=== PATIENT | female | born 1995 | race Caucasian/White ===

== ENCOUNTER 2016-05-14 13:10 | Emergency (ER) | payer OTHER ==
[~2016-05-14] VITALS: Ht 157.5 cm; Wt 62.5 kg
[2016-05-14 13:28] VITALS: Ht 157.5 cm; Wt 62.5 kg
[2016-05-14] MEDS ORDERED: ACETAMINOPHEN 500 MG TAB PO STA (13:58)
[2016-05-14] MEDS ORDERED: IBUPROFEN 800 MG TAB PO ONE (14:00)
[2016-05-14] MEDS ORDERED: ONDANSETRON (ODT) 4 MG TAB ODT STA (14:03)
[2016-05-14] MEDS ORDERED: LIDOCAINE/MYLANTA 40 ML BTL PO ONE (14:30)
[2016-05-14] MEDS ORDERED: BELLADONNA/PHENOBARBITAL 5ML CUP PO ONE ×2 (14:30)
[2016-05-14 16:51] LABS: URINE BLOOD (Dip) POC 2+ (NEGATIVE)
[2016-05-14 16:56] VITALS: BP 106/61; PULSE 103; RESP 16; TEMP 98.9
[2016-05-14] MEDS ORDERED: IBUP800T25 PO (16:57)
[2016-05-14] MEDS ORDERED: OSLT75C PO (16:57)
[2016-05-14] MEDS ORDERED: LOPE2CAP PO (16:57)
[2016-05-14] MEDS ORDERED: ONDA4TAB14 PO (16:57)
[2016-05-14] MEDS ORDERED: ACET-141 PO (16:57)
[2016-05-14] MEDS ORDERED: KETOROLAC 30 MG INJ IM STA (16:58)
[2016-05-14] MEDS ORDERED: HYDROCODONE/APAP (5/325) TAB PO ONE (17:00)
--- NOTE | 2016-05-14 17:36 | ERD ---
ER Documentation Chief Complaint Date/Time DATE: 05/14/16 TIME: 17:33 Chief Complaint STEVEN N/V/D BODYACHES AP HPI Patient complains of diarrhea, nonbloody vomiting for the past 2 days also headache bone hurts arthralgia myalgia for 2 days. Fever for 1 day. No UTI symptoms. She says she has had influenza shot. No past medical history allergies or medications. ROS All systems reviewed and are negative except as per history of present illness. Medications Home Meds Active Scripts Acetaminophen* (Acetaminophen*) 500 MG Extra Strength Tablet, 1000 MG PO Q8 Y for PAIN AND OR ELEVATED TEMP, #30 TAB Prov:JOSE,RU DO 05/14/16 Ibuprofen* (Ibuprofen*) 800 Mg Tablet, 800 MG PO Q8, #14 TAB Prov:JOSE,RU DO 05/14/16 Loperamide Hcl* (Imodium*) 2 Mg Capsule, 2 MG PO .AFTER EA LOOSE BM Y for DIARRHEA, #10 TAB Prov:JOSERU DO 05/14/16 Ondansetron (Ondansetron Odt) 4 Mg Tab.rapdis, 4 MG PO Q6H Y for NAUSEA AND/OR VOMITING, #10 TAB Prov:JOSERU DO 05/14/16 Oseltamivir Phosphate* (Tamiflu*) 75 Mg Capsule, 75 MG PO BID for 5 Days, CAP Prov:JOSE,RU DO 05/14/16 Allergies Allergies: Coded Allergies: No Known Allergy (Unverified , 05/14/16) PMhx/Soc Medical and Surgical Hx: pt denies Medical Hx, pt denies Surgical Hx Physical Exam Vitals Vital Signs Date Time Temp Pulse Resp B/P Pulse Ox O2 Delivery O2 Flow Rate FiO2 05/14/16 16:56 98.9 103 16 106/61 98 Room Air 05/14/16 13:28 102.4 136 18 104/65 99 Physical Exam Const: [Alert oriented 4, well-nourished well-developed nontoxic- appearing no apparent distress, interacts appropriately] Head: [Normocephalic/atraumatic, no scalp lesions] Eyes: [Normal Conjunctiva, PERRLA, EOMI no conjunctival injection no conjunctival discharge] ENT: [Normal External Ears, Nose and Mouth, no tonsillar exudates no tonsillar erythema no tonsillar edema oropharynx no erythema. bilateral ear canals are patent, bilateral tympanic membranes nonerythematous.] Neck: [Full range of motion. No meningismus. No cervical lymphadenopathy] Resp: [Clear to auscultation bilaterally, no wheezes rhonchi or rales, breathing normally, no tachypnea no nasal flaring no grunting no accessory muscle use no retractions] Cardio: [Regular rate and rhythm, no murmurs] Abd: [Soft, non tender, non distended. Normal bowel sounds, no rebound rigidity or guarding. Normoactive bowel sounds no flank tenderness, negative McBurney's negative Forte sign.] Skin: [No petechiae or rashes, no hives no urticaria no abscess no laceration no new warmth] Back: [No midline or flank tenderness, full range of motion without pain ] Ext: [No cyanosis, clubbing or edema] Neuro: M/S: Alert and oriented 4. Face: EOMI, face and pharynx with normal sensation and function Motor: Normal strength throughout, muscle strength is 5 out of 5 bilateral upper extremity and bilateral lower extremity Sensation: Normal sensation throughout Speech: Normal Cerebel: Normal coordination Normal gait DTR: 2+ and symmetric upper/lower extremities Psych: [Normal Mood and Affect, no suicidal ideation or homicide ideation] Results 24 hrs Laboratory Tests Test 05/14/16 16:51 Bedside Urine Blood 2+ Bedside Urine Glucose (UA) Negative Bedside Urine Ketones (LAB) 1+ Bedside Urine Leukocyte Esterase (L Negative Bedside Urine Nitrite (LAB) Negative Bedside Urine Protein (LAB) 2+ Bedside Urine pH (LAB) 6.0 Current Medications Medications (Trade) Dose Ordered Sig/Rob Route PRN Reason Start Time Stop Time Status Last Admin Dose Admin Ibuprofen (Motrin) 800 mg ONCE ONCE PO 05/14/16 14:00 05/14/16 14:01 DC 05/14/16 14:36 Acetaminophen (Tylenol Tab) 1,000 mg ONCE STAT PO 05/14/16 13:58 05/14/16 13:59 DC 05/14/16 14:36 Ondansetron HCl (Zofran Odt) 4 mg ONCE STAT ODT 05/14/16 14:03 05/14/16 14:04 DC 05/14/16 14:36 Miscellaneous Medication (Gi Cocktail (2)) 40 ml ONCE ONCE PO 05/14/16 14:30 05/14/16 14:31 DC 05/14/16 14:36 Belladonna Alkaloids/ Phenobarbital () 10 ml ONCE ONCE PO 05/14/16 14:30 05/14/16 14:30 DC Belladonna Alkaloids/ Phenobarbital () 10 ml ONCE ONCE PO 05/14/16 14:30 05/14/16 14:31 DC 05/14/16 14:37 Ketorolac Tromethamine (Toradol) 30 mg ONCE STAT IM 05/14/16 16:58 05/14/16 17:02 DC 05/14/16 17:23 Acetaminophen/ Hydrocodone Bitart (Bellwood (5/325)) 1 tab ONCE ONCE PO 05/14/16 17:00 05/14/16 17:02 DC 05/14/16 17:22 Procedures/MDM This is likely a viral syndrome and/or influenza. She has a high fever and multiple flulike symptoms all treat her empirically for influenza. Urine did not show nitrites or leukocyte esterase I doubt UTI or pyelonephritis. He does not have abdominal tenderness so I doubt acute enthesitis cholangitis cholecystitis choledocholithiasis or pancreatitis. On reexamination she appeared better however she still had some abdominal pain so we gave [place] and Toradol. ED precautions discussed and follow-up with PCP. Departure Diagnosis: Primary Impression: Flu-like symptoms Additional Impression: Acute febrile illness Condition: Stable Patient Instructions: Fever Control (Child), Influenza (Adult) RU GARCIA DO May 14, 2016 17:36
== END 2016-05-14 17:39 | disposition home or self-care (01) ==
LOC: FTE 13:10
DX: R51 Headache (principal); R19.7 Diarrhea, unspecified; M79.1 Myalgia
CPT/HCPCS: 81003; J1885; 96372